=== PATIENT | female | born 1995 | race Caucasian/White ===

== ENCOUNTER 2025-04-10 16:20 | Outpatient (CLI) | payer OTHER, SELFPAY | END 2025-04-10 16:21 | disposition home or self-care (01) | LOC: NFLDREF 04-16 16:03 | PROVIDERS: PCP Family Medicine; Visit Provider Family Medicine | DX: E28.2 Polycystic ovarian syndrome (principal); E78.5 Hyperlipidemia, unspecified; D50.9 Iron deficiency anemia, unspecified; E66.01 Morbid (severe) obesity due to excess calories; Z68.41 Body mass index [BMI] 40.0-44.9, adult | CPT/HCPCS: 80053; 80061; 82607; 82728; 83540; 83550; 84443 ==

== ENCOUNTER 2025-06-08 13:54 | Outpatient (CLI) | payer OTHER, SELFPAY | END 2025-06-08 13:55 | disposition home or self-care (01) | PROVIDERS: PCP Family Medicine; Visit Provider Registered Nurse | DX: N91.5 Oligomenorrhea, unspecified | CPT/HCPCS: 82670; 83001; 83498; 84144; 84146; 84270; 84402; 84403; 84443 ==